=== PATIENT | male | born 1975 | race Caucasian/White ===

== ENCOUNTER 2020-01-13 17:05 | Observation (INO) | payer OTHER ==
[~2020-01-13] VITALS: Ht 177.8 cm; Wt 139.4 kg
[2020-01-13] MEDS ORDERED: NITROGLYCERIN OINT 2%, 1GM TP ONE ×2 (18:24→18:30)
[2020-01-13] MEDS ORDERED: ASPIRIN 81 MG TABLET CHEW ONE (18:24)
--- NOTE | 2020-01-13 18:28 | NUR ---
PT RESTING IN [facility], PT MEDICATED PER JAN. NITRO PASTE APPLIED. CALL LIGHT WITHIN REACH. PT ON MONITIR. AWAITING LAB AND RAD RESULTS.
[2020-01-13] MEDS ORDERED: ASPIRIN 81 MG TABLET CHEW PO ONE (18:30)
[2020-01-13 18:42] LABS: BASOPHILS # (AUTO) 0.05 x10^3/uL (0-0.1); BASOPHILS % (AUTO) 1 % (0-1); EOSINOPHILS # (AUTO) 0.38 x10^3/uL (0-0.4); EOSINOPHILS % (AUTO) 5 % (1-7); LYMPHOCYTES # (AUTO) 2.36 x10^3/uL (1-3.4); LYMPHOCYTES % (AUTO) 30 % (22-44); MD NO; MEAN CORPUSCULAR HEMOGLOBIN 29.7 pg (27.5-34.5); MEAN CORPUSCULAR HGB CONC 33.9 g/dL (33.2-36.2); MEAN CORPUSCULAR VOLUME 87.5 fL (81-97); MONOCYTES # (AUTO) 0.56 x10^3/uL (0.2-0.8); MONOCYTES % (AUTO) 7 % (2-9); NEUTROPHILS # (AUTO) 4.48 x10^3/uL (1.8-6.8); NEUTROPHILS % (AUTO) 57 % (42-75); PLATELET COUNT 235 x10^3/uL (130-400); RED BLOOD COUNT 5.18 x10^6/uL (4.38-5.82); RED CELL DISTRIBUTION WIDTH 12.9 % (9.4-14.8)
[2020-01-13 18:43] LABS: INTERNATIONAL NORMALIZED RATIO 0.93 (0.93-1.1); PROTHROMBIN TIME 9.9 Seconds (9.6-11.5)
[2020-01-13 18:44] LABS: ALBUMIN 3.5 g/dL (3.4-5.0); ANION GAP 8 mmol/L (5-15); CALCIUM 8.1 mg/dL (8.5-10.1); CHLORIDE 112 mmol/L (98-107)
[2020-01-13 18:52] LABS: ALANINE AMINOTRANSFERASE 48 U/L (12-78); ALKALINE PHOSPHATASE 105 U/L (45-117); BILIRUBIN,TOTAL 0.3 mg/dL (0.2-1.0); CREATININE 0.96 mg/dL (0.7-1.3); TOTAL PROTEIN 7.2 g/dL (6.4-8.2); TROPONIN I < 0.015 ng/mL (0.000-0.045)
[2020-01-13] MEDS ORDERED: IBUP-1223 PO (18:58)
[2020-01-13] MEDS ORDERED: OMEP-110 PO (18:58)
--- NOTE | 2020-01-13 18:58 | NUR ---
PT RESTING CALMLY, STATED PAIN HAS IMPROVED, MONITORS IN PLACE, SIDERAILS UP X2, CALL LIGHT WITHIN REACH. AWAITING LAB RESULTS
--- NOTE | 2020-01-13 19:38 | NUR ---
ERP AT PT'S BEDSIDE FOR RECHECK
--- NOTE | 2020-01-13 19:49 | NUR ---
IV SITE STARTED. PT SITTING UP TALKING ON CELL PHONE, DENIES NEEDS, CALL LIGHT WITHIN REACH. AWAITING ROOM FOR ADMIT
[2020-01-13] MEDS: NITROGLYCERIN OINT 2%, 1GM TP SCH (20:30)
[2020-01-13] MEDS ORDERED: ACETAMINOPHEN 325 MG TABLET PO PRN (20:30)
[2020-01-13] MEDS ORDERED: ONDANSETRON 2MG/ML, 2ML IVPush PRN (20:30)
[2020-01-13] MEDS ORDERED: ENALAPRILAT 1.25 MG/ML, 2ML IVPush PRN (20:30)
[2020-01-13] MEDS ORDERED: morphine SULFATE 10 MG/ML, 1ML IV PRN (20:30)
[2020-01-13] MEDS ORDERED: NITROGLYCERIN 0.4 MG BOTTLE (25 TABS) SL PRN (21:00)
[2020-01-13 22:41] LABS: TROPONIN I < 0.015 ng/mL (0.000-0.045)
[2020-01-13 23:15] VITALS: BP 120/74
[2020-01-13] MEDS ORDERED: HYDR-3245 PO (23:41)
[2020-01-13] MEDS ORDERED: ALBU10PO INH (23:41)
[2020-01-14] MEDS ORDERED: ALBUTEROL SULFATE 2.5 MG/3 ML NPPB PRN (00:30)
[2020-01-14 01:02] VITALS: BP 104/67
[2020-01-14] MEDS: NITROGLYCERIN OINT 2%, 1GM TP SCH ×2 (02:45→08:25)
[2020-01-14 05:02] LABS: BASOPHILS # (AUTO) 0.05 x10^3/uL (0-0.1); BASOPHILS % (AUTO) 1 % (0-1); EOSINOPHILS # (AUTO) 0.35 x10^3/uL (0-0.4); EOSINOPHILS % (AUTO) 4 % (1-7); LYMPHOCYTES # (AUTO) 2.19 x10^3/uL (1-3.4); LYMPHOCYTES % (AUTO) 27 % (22-44); MD NO; MEAN CORPUSCULAR HEMOGLOBIN 29.6 pg (27.5-34.5); MEAN CORPUSCULAR HGB CONC 33.7 g/dL (33.2-36.2); MEAN CORPUSCULAR VOLUME 87.9 fL (81-97); MEAN PLATELET VOLUME 7.7 fL (7.4-10.4); MONOCYTES # (AUTO) 0.62 x10^3/uL (0.2-0.8); MONOCYTES % (AUTO) 8 % (2-9); NEUTROPHILS # (AUTO) 4.85 x10^3/uL (1.8-6.8); NEUTROPHILS % (AUTO) 60 % (42-75); PLATELET COUNT 209 x10^3/uL (130-400); RED BLOOD COUNT 5.06 x10^6/uL (4.38-5.82); RED CELL DISTRIBUTION WIDTH 13.2 % (9.4-14.8)
[2020-01-14 05:11] LABS: ANION GAP 4 mmol/L (5-15); CALCIUM 8.1 mg/dL (8.5-10.1); CHLORIDE 114 mmol/L (98-107)
[2020-01-14 05:19] LABS: CHOL/HDL RATIO 4.4; CHOLESTEROL, TOTAL 133 mg/dL (140-239); CREATININE 0.87 mg/dL (0.7-1.3); HDL CHOL % 23 % (26-37); HDL CHOLESTEROL (DIRECT) 30 mg/dL (40-60); LDL CHOLESTEROL,CALCULATED 74 mg/dL (54-169); LDL/HDL RATIO 2.5 (0.5-3.0); TRIGLYCERIDES 147 mg/dL (50-200); TROPONIN I < 0.015 ng/mL (0.000-0.045); VLDL CHOLESTEROL 29 mg/dL (0-25)
[2020-01-14] MEDS: ASPIRIN 325 MG TABLET EC PO SCH (06:07)
[2020-01-14 07:20] VITALS: BP 115/78
[2020-01-14] MEDS: OMEPRAZOLE 20 MG CAPSULE.DR PO SCH (08:17)
[2020-01-14] MEDS ORDERED: NITROGLYCERIN OINT 2%, 1GM TP PRN (08:25)
[2020-01-14] MEDS ORDERED: REGADENOSON 0.4 MG/5 ML SYRINGE ONE (12:30)
[2020-01-14 14:19] VITALS: BP 118/81
[2020-01-14 20:30] VITALS: BP 115/75
[2020-01-15 02:40] VITALS: BP 122/82
[2020-01-15] MEDS: ASPIRIN 325 MG TABLET EC PO SCH (06:47)
[2020-01-15 07:18] VITALS: BP 121/81
[2020-01-15] MEDS: OMEPRAZOLE 20 MG CAPSULE.DR PO SCH (07:47)
[2020-01-15] MEDS ORDERED: OMEP-110 PO (14:04)
== END 2020-01-15 15:22 | disposition home or self-care (01) ==
LOC: ED 19:31 → EDIP 20:16 → INTOOBSV 20:16 → 5SO 21:14 → DCLOUNGE 01-15 15:11
PROVIDERS: ADMIT Family Medicine; ATTEND Internal Medicine
DX: R07.89 Other chest pain (principal); I10 Essential (primary) hypertension; K21.9 Gastro-esophageal reflux disease without esophagitis; G47.33 Obstructive sleep apnea (adult) (pediatric); E66.9 Obesity, unspecified; J45.909 Unspecified asthma, uncomplicated; Z87.891 Personal history of nicotine dependence; Z68.41 Body mass index [BMI] 40.0-44.9, adult; Z79.899 Other long term (current) drug therapy
CPT/HCPCS: 36415; 71045; 78452; 80048; 80053; 80061; 83036; 83690; 83880; 84484; 85025; 85610; 85730; 93005; 93017; 93306; 99285; A9502; G0378; J2785